=== PATIENT | male | born 1990 | race Two or more races ===

== ENCOUNTER 2020-11-30 16:27 | Inpatient (IN) | payer MEDICAID, OTHER ==
[~2020-11-30] VITALS: Ht 175.3 cm; Wt 89.8 kg
[2020-11-30] MEDS ORDERED: LORazepam 2 MG/ML VIAL IM ONE (20:15)
[2020-11-30] MEDS ORDERED: HALOPERIDOL LACTATE 5 MG/ML VIAL IM ONE (20:15)
[2020-11-30] MEDS ORDERED: HALOPERIDOL 5 MG TABLET PO PRN (21:15)
[2020-11-30 22:10] LABS: COVID AG,FIA SOURCE NASOPHARYNGEAL
[2020-12-01 06:49] LABS: AMPHET/METH SCREEN,URINE NEGATIVE (NEGATIVE); BARBITURATE SCREEN, URINE NEGATIVE (NEGATIVE); BENZODIAZEPINES SCREEN,URINE NEGATIVE (NEGATIVE); CANNABINOID SCREEN,URINE NEGATIVE (NEGATIVE); COCAINE SCREEN,URINE NEGATIVE (NEGATIVE); METHADONE SCREEN, URINE NEGATIVE (NEGATIVE); OPIATE SCREEN,URINE NEGATIVE (NEGATIVE)
[2020-12-01 07:01] LABS: APPEARANCE,URINE CLEAR (CLEAR); BILIRUBIN,URINE NEGATIVE (NEGATIVE); GLUCOSE, URINE (UA) NEGATIVE (NEGATIVE); KETONES,URINE NEGATIVE (NEGATIVE); LEUKOCYTE ESTERASE ,URINE NEGATIVE (NEGATIVE); NITRATE,URINE NEGATIVE (NEGATIVE); OCCULT BLOOD,URINE NEGATIVE (NEGATIVE); PH,URINE 5.5 (5.0-8.0); PROTEIN,URINE NEGATIVE (NEGATIVE); UROBILINOGEN,URINE 0.2 mg/dL (<=1.0)
[2020-12-01 07:05] LABS: PHENCYCLIDINE SCREEN,URINE NEGATIVE (NEGATIVE)
[2020-12-01 09:09] VITALS: BP 138/90
[2020-12-01] MEDS ORDERED: PNEUMOCOCCAL VACCINE POLYVALENT 0.5 ML VIAL [PPSV23] IM. ONE (09:45)
[2020-12-01] MEDS: LORazepam 2 MG TABLET PO PRN ×2 (13:05→17:05)
[2020-12-01] MEDS: ALBUTEROL SULFATE HFA 90 MCG/PUFF 8 GM INHALER IH PRN (14:17)
[2020-12-01 16:00] VITALS: BP 141/89
[2020-12-01 16:01] VITALS: BP 139/82
[2020-12-01] MEDS: ZOLPIDEM TARTRATE 10 MG TABLET PO PRN (21:53)
[2020-12-01] MEDS ORDERED: MAG HYDROX/AL HYDROX/SIMETH ES 30 ML SUSPENSION UDCUP PO PRN (22:30)
[2020-12-02 00:52] VITALS: BP 145/88
[2020-12-02] MEDS ORDERED: IBUPROFEN 400 MG TABLET PO PRN ×2 (01:15→06:30)
[2020-12-02] MEDS ORDERED: ACETAMINOPHEN 325 MG TABLET PO PRN ×2 (01:15→06:30)
[2020-12-02] MEDS: LORazepam 2 MG TABLET PO PRN ×4 (04:33→22:52)
[2020-12-02] MEDS: ALBUTEROL SULFATE HFA 90 MCG/PUFF 8 GM INHALER IH PRN ×2 (04:56→15:11)
[2020-12-02] MEDS ORDERED: DOCUSATE SODIUM 100 MG CAPSULE PO PRN (06:30)
[2020-12-02] MEDS ORDERED: NICOTINE 14 MG/24 HOUR PATCH TD PRN (06:30)
[2020-12-02] MEDS ORDERED: MAGNESIUM HYDROXIDE SUSPENSION 30 ML UDCUP PO PRN (06:30)
[2020-12-02] MEDS ORDERED: LOPERAMIDE HCL 2 MG CAPSULE PO PRN (06:30)
[2020-12-02] MEDS ORDERED: PETROLATUM,WHITE 28 GM JELLY TP PRN (06:30)
[2020-12-02] MEDS ORDERED: ONDANSETRON HCL 4 MG TABLET PO PRN (06:30)
[2020-12-02] MEDS ORDERED: CloNIDine HCL 0.1 MG TABLET PO PRN (06:30)
[2020-12-02] MEDS ORDERED: GuaiFENesin/D-METHORPHAN [SUGAR-FREE] 200-20MG/10 ML SYRUP UDCUP PO PRN (06:30)
[2020-12-02 08:35] VITALS: BP 178/148
[2020-12-02] MEDS: MAG HYDROX/AL HYDROX/SIMETH ES 30 ML SUSPENSION UDCUP PO PRN ×2 (08:35→17:30)
[2020-12-02 09:32] VITALS: BP 130/83
[2020-12-02 16:05] VITALS: BP 132/80
[2020-12-02 22:50] VITALS: BP 130/90
[2020-12-03] MEDS: ZOLPIDEM TARTRATE 10 MG TABLET PO PRN ×2 (01:58→20:29)
[2020-12-03] MEDS: ALBUTEROL SULFATE HFA 90 MCG/PUFF 8 GM INHALER IH PRN (06:23)
[2020-12-03 08:19] VITALS: BP 140/87
[2020-12-03] MEDS: LORazepam 2 MG TABLET PO PRN ×2 (08:31→16:18)
[2020-12-03] MEDS: OLANZapine 5 MG TABLET PO SCH ×2 (08:32→16:17)
[2020-12-03 16:00] VITALS: BP 151/87
[2020-12-03] MEDS: MAG HYDROX/AL HYDROX/SIMETH ES 30 ML SUSPENSION UDCUP PO PRN (16:17)
[2020-12-04] MEDS: ALBUTEROL SULFATE HFA 90 MCG/PUFF 8 GM INHALER IH PRN (07:21)
[2020-12-04] MEDS: LORazepam 2 MG TABLET PO PRN (07:21)
[2020-12-04 08:00] VITALS: BP 134/92
[2020-12-04] MEDS: OLANZapine 5 MG TABLET PO SCH (08:01)
[2020-12-04] MEDS ORDERED: OLAN5TAB2 PO (10:59)
== END 2020-12-04 13:55 | disposition home or self-care (01) | DRG 750 ==
LOC: EMS 16:27 → 3EI 12-01 08:52 → 3EC 12-01 14:35
PROVIDERS: ADMIT Psychiatry & Neurology Child & Adolescent Psychiatry; ATTEND Psychiatry & Neurology Child & Adolescent Psychiatry
DX: F20.9 Schizophrenia, unspecified (principal); R45.851 Suicidal ideations; Z78.1 Physical restraint status; Z20.822 Contact with and (suspected) exposure to COVID-19; J45.909 Unspecified asthma, uncomplicated; R00.0 Tachycardia, unspecified; R03.0 Elevated blood-pressure reading, without diagnosis of hypertension
CPT/HCPCS: 81003; 87426; 99285; J1630; J2060; J3535